=== PATIENT | male | born 2000 | race Caucasian/White ===

== ENCOUNTER 2020-12-31 14:07 | Emergency (ER) | payer OTHER | END 2020-12-31 15:53 | disposition home or self-care (01) | LOC: FER 14:07 | DX: S06.0X0A Concussion without loss of consciousness, initial encounter (principal); F10.10 Alcohol abuse, uncomplicated; V48.5XXA Car driver injured in noncollision transport accident in traffic accident, initial encounter; Y92.410 Unspecified street and highway as the place of occurrence of the external cause | CPT/HCPCS: 70450; 72128 ==

== ENCOUNTER 2021-12-10 09:37 | Emergency (ER) | payer OTHER ==
[2021-12-10 10:37] LABS: BASOPHIL 0.4 % (0-2); EOSINOPHIL 0.9 % (0-5); HGB 17.1 g/dl (13.2-18.0); LYMPHOCYTE 19.5 % (15-48); MCH 31.5 pg (25.0-31.0); MCHC 35.6 g/dL (32.0-36.0); MCV 88.6 fL (78.0-100.0); NEUTROPHIL 71.5 % (41-80); PLT 294 K/uL (150-400); RBC 5.42 M/uL (4.70-6.00); WBC 6.9 K/uL (4.0-10.5)
[2021-12-10 10:42] LABS: BUN/CREAT RATIO (CALC) 15.5 RATIO; CREATININE 0.97 mg/dL (0.67-1.17); POTASSIUM 4.1 mmol/L (3.5-5.1)
== END 2021-12-10 12:38 | disposition home or self-care (01) ==
LOC: FER 09:37
PROVIDERS: Emergency Medicine
DX: I50.1 Left ventricular failure, unspecified (principal); R07.89 Other chest pain; Z28.310 Unvaccinated for COVID-19
CPT/HCPCS: 36415; 71045; 71275; 80048; 84484; 85025; 93005; Q9967